=== PATIENT | male | born 1960 | race Caucasian/White ===

== ENCOUNTER 2024-04-11 12:53 | Outpatient (CLI) | payer SELFPAY ==
[2024-04-11 15:37] LABS: Hematocrit 47.4 % (38.8-50.0); Mean Corpuscular HGB CONC 33.8 g/dL (32.0-36.0); Mean Corpuscular Hemoglobin 32.3 pg (27.0-33.0); Mean Corpuscular Volume 95.6 fL (81.2-95.1); Mean Platelet Volume 10.5 fL (7.4-10.4); Platelet Count 252 10x3/uL (150-450); RBC Distribution Width 12.3 % (11.5-14.5); Red Blood Cell (RBC) Count 4.96 10x6/uL (4.32-5.72); White Blood Cell (WBC) Count 8.9 10x3/uL (3.5-10.5)
[2024-04-11 15:39] LABS: INR-International Normal Ratio 0.9; PTT 29.1 sec (22.0-33.0); Prothrombin Time 10.1 sec (9.5-12.1)
[2024-04-11 15:47] LABS: ALT (SGPT) 22 U/L (8-55); AST (SGOT) 26 U/L (5-34); Albumin 4.1 g/dL (3.4-4.8); Alkaline Phosphatase 99 U/L (40-110); Anion Gap 16 mmol/L (10-20); BUN (Urea Nitrogen) 14 mg/dL (8.4-25.7); Bilirubin, Direct 0.2 mg/dL (0.1-0.3); Bilirubin, Total 0.6 mg/dL (0.2-1.2); Calc. Creatinine Clearance 0 mL/min (70-130); Calcium 9.9 mg/dL (7.8-10.44); Carbon Dioxide 27 mmol/L (23-31); Chloride 104 mmol/L (98-107); Estimated GFR 88; Glucose 96 mg/dL (80-115); Potassium 4.6 mmol/L (3.5-5.1); Protein, Total 7.3 g/dL (5.8-8.1); Sodium 142 mmol/L (136-145)
[2024-04-12 00:26] LABS: HIV (1/2) Antibody/Antigen Non-Reactive (NonReactive); HIV 1/2 INDEX 0.07 S/CO (<1.00)
== END 2024-04-11 12:54 | disposition home or self-care (01) ==
LOC: LABBT 12:53
PROVIDERS: ATTEND Urology
DX: Z01.818 Encounter for other preprocedural examination (principal); Z12.5 Encounter for screening for malignant neoplasm of prostate; N20.1 Calculus of ureter; R35.0 Frequency of micturition; N28.1 Cyst of kidney, acquired
CPT/HCPCS: 80048; 80076; 85027; 85610; 85730; 87389; 93005; 93010

== ENCOUNTER 2024-04-16 10:15 | Day surgery (SDC) | payer OTHER, SELFPAY ==
[2024-04-11 13:52] VITALS: BMI 27.2
[2024-04-16] MEDS ORDERED: Lidocaine 1% PF 5 ML VIAL ONE (11:22)
[2024-04-16] MEDS ORDERED: PROPOFOL 20 ML ONE (11:22)
[2024-04-16] MEDS ORDERED: Rocuronium Bromide 10 MG/ML (10ML VIAL) ONE (11:22)
[2024-04-16] MEDS ORDERED: fentaNYL PF 100 MCG/2 ML SYRINGE ONE (11:23)
[2024-04-16] MEDS ORDERED: ePHEDrine Sulfate 50 MG/10 ML VIAL ONE (11:25)
[2024-04-16] MEDS ORDERED: LevoFLOXacin D5W 500 mg (100 mL) BAG ONE (11:40)
[2024-04-16] MEDS ORDERED: Iopamidol 15 ML ONE (12:25)
[2024-04-16] MEDS ORDERED: SUGAMMADEX SODIUM 200 MG/2 ML VIAL ONE (13:11)
[2024-04-16] MEDS ORDERED: Ondansetron PF 4 MG/2 ML Vial ONE (13:11)
[2024-04-16] MEDS ORDERED: Dexamethasone 4 mg/ml Vial ONE (13:12)
[2024-04-16] MEDS ORDERED: Phenazopyridine HCl 100 MG TAB ONE (14:22)
[2024-04-16] MEDS ORDERED: Tamsulosin HCl 0.4 MG CAP ONE (14:23)
[2024-04-16] MEDS ORDERED: fentaNYL 50 mcg/mL 1 mL Vial ONE ×2 (14:49→15:04)
== END 2024-04-16 16:19 | disposition home or self-care (01) ==
LOC: SDC 10:15
PROVIDERS: ATTEND Urology
PROC: 0T778DZ Dilation of Left Ureter with Intraluminal Device, Via Natural or Artificial Opening Endoscopic (ICD-10-PCS; principal; 2024-04-16)
PROC: 0TC78ZZ Extirpation of Matter from Left Ureter, Via Natural or Artificial Opening Endoscopic (ICD-10-PCS; principal; 2024-04-16)
DX: N13.2 Hydronephrosis with renal and ureteral calculous obstruction (principal); N40.1 Benign prostatic hyperplasia with lower urinary tract symptoms; K50.90 Crohn's disease, unspecified, without complications; M47.816 Spondylosis without myelopathy or radiculopathy, lumbar region; R35.0 Frequency of micturition; N28.1 Cyst of kidney, acquired; F12.90 Cannabis use, unspecified, uncomplicated; L81.8 Other specified disorders of pigmentation; Z98.890 Other specified postprocedural states; Z79.899 Other long term (current) drug therapy; Z88.6 Allergy status to analgesic agent
CPT/HCPCS: 74018; 74420; C1769; C2617; J1100; J1956; J2405; J2704; J3010; Q9967

== ENCOUNTER 2024-08-20 14:11 | Outpatient (CLI) | payer OTHER | END 2024-08-20 14:12 | disposition home or self-care (01) | LOC: BICRAD 14:11 | PROVIDERS: ATTEND Family Medicine | DX: M25.511 Pain in right shoulder (principal); M54.41 Lumbago with sciatica, right side; M47.816 Spondylosis without myelopathy or radiculopathy, lumbar region; M47.817 Spondylosis without myelopathy or radiculopathy, lumbosacral region; M19.011 Primary osteoarthritis, right shoulder; M25.811 Other specified joint disorders, right shoulder | CPT/HCPCS: 72120 ==

== ENCOUNTER 2024-08-22 13:12 | Outpatient (CLI) | payer OTHER | END 2024-08-22 13:13 | disposition home or self-care (01) | LOC: BICULT 13:12 | PROVIDERS: ATTEND Urology | DX: N20.2 Calculus of kidney with calculus of ureter (principal); R35.0 Frequency of micturition; N28.1 Cyst of kidney, acquired | CPT/HCPCS: 76770 ==

== ENCOUNTER 2025-06-22 08:45 | Outpatient (CLI) | payer OTHER | END 2025-06-22 08:46 | disposition home or self-care (01) | LOC: PET 08:45 | PROVIDERS: ATTEND Internal Medicine Hematology & Oncology | DX: C11.8 Malignant neoplasm of overlapping sites of nasopharynx (principal); K52.9 Noninfective gastroenteritis and colitis, unspecified | CPT/HCPCS: 78815; A9552 ==

== ENCOUNTER 2025-06-23 10:30 | Outpatient (CLI) | payer OTHER | END 2025-06-23 10:31 | disposition home or self-care (01) | LOC: SCSMRI 10:30 | PROVIDERS: ATTEND Internal Medicine Hematology & Oncology | DX: C11.8 Malignant neoplasm of overlapping sites of nasopharynx (principal); H74.8X2 Other specified disorders of left middle ear and mastoid; C77.9 Secondary and unspecified malignant neoplasm of lymph node, unspecified | CPT/HCPCS: 70543 ==

== ENCOUNTER 2025-07-08 17:56 | Emergency (ER) | payer OTHER ==
[2025-07-08 18:23] LABS: #Basophils Less than 0.03 10x3/uL (0.0-0.2); #Eosinophils Less than 0.03 10x3/uL (0.0-0.7); #Monocytes 1.52 10x3/uL (0.11-0.59); #Neutrophils 11.96 10x3/uL (1.40-6.50); %Basophils 0.1 % (0.0-1.0); %Eosinophils 0.0 % (0.0-10.0); %Lymphocytes 9.2 % (21.0-51.0); %Monocytes 10.1 % (0.0-10.0); %Neutrophils 79.3 % (42.0-75.0); Hematocrit 28.1 % (42.0-52.0); Hemoglobin 9.2 g/dL (14.0-18.0); Mean Corpuscular Hemoglobin 33.1 pg (27.0-31.0); Mean Corpuscular Volume 101.1 fL (78.0-98.0); Platelet Count 211 10x3/uL (130-400); Red Blood Cell (RBC) Count 2.78 mill/uL (4.70-6.10); White Blood Cell (WBC) Count 15.08 10x3/uL (4.8-10.8)
[2025-07-08 18:47] LABS: ALT (SGPT) 12 U/L (Less than 45); AST (SGOT) 21 U/L (11-34); Albumin 3.4 g/dL (3.1-4.5); Alkaline Phosphatase 75 U/L (40-110); Anion Gap 18 mmol/L (10-20); BUN (Urea Nitrogen) 30 mg/dL (8.4-25.7); Bilirubin, Total 0.4 mg/dL (0.3-1.2); Calc. Creatinine Clearance 0 mL/min (70-130); Calcium 8.8 mg/dL (7.8-10.44); Carbon Dioxide 20 mmol/L (23-31); Chloride 108 mmol/L (98-107); Globulin 2.9 g/dL (2.4-3.5); Glucose 96 mg/dL (80-115); Potassium 5.2 mmol/L (3.5-5.1); Sodium 141 mmol/L (136-145)
== END 2025-07-08 21:00 | disposition home or self-care (01) ==
LOC: ERS 17:56
DX: E87.5 Hyperkalemia (principal); N17.9 Acute kidney failure, unspecified; D64.9 Anemia, unspecified; D72.829 Elevated white blood cell count, unspecified
CPT/HCPCS: 93005; 96360

== ENCOUNTER 2025-10-15 11:05 | Outpatient (CLI) | payer OTHER | END 2025-10-15 11:06 | disposition home or self-care (01) | LOC: SCSRAD 11:05 | PROVIDERS: ATTEND Student in an Organized Health Care Education/Training Program | DX: M51.16 Intervertebral disc disorders with radiculopathy, lumbar region (principal); M51.17 Intervertebral disc disorders with radiculopathy, lumbosacral region; M25.551 Pain in right hip; M41.9 Scoliosis, unspecified; M47.816 Spondylosis without myelopathy or radiculopathy, lumbar region; M47.817 Spondylosis without myelopathy or radiculopathy, lumbosacral region | CPT/HCPCS: 72110 ==

== ENCOUNTER 2025-10-28 10:17 | Outpatient (CLI) | payer OTHER | END 2025-10-28 10:18 | disposition home or self-care (01) | LOC: BICRAD 10:17 | PROVIDERS: ATTEND Internal Medicine | DX: Z02.71 Encounter for disability determination (principal); M19.011 Primary osteoarthritis, right shoulder; M47.816 Spondylosis without myelopathy or radiculopathy, lumbar region | CPT/HCPCS: 72100 ==

== ENCOUNTER 2025-10-28 10:33 | Outpatient (CLI) | payer OTHER | END 2025-10-28 10:34 | disposition home or self-care (01) | LOC: BICRAD 10:33 | PROVIDERS: ATTEND Student in an Organized Health Care Education/Training Program | DX: M25.551 Pain in right hip (principal) ==